=== PATIENT | male | born 1995 | race Caucasian/White ===

== ENCOUNTER 2016-12-15 09:24 | Emergency (ER) | payer OTHER ==
--- NOTE | 2016-12-15 13:01 | ED ORDER SUMMARY ---
..... Patient: BANADR SALAZAR OrderSheet [facility] VisitID: [id number] [place] [address] 21y, M Registration Date/Time: 12/15/2016 ORDER SHEET Weight: 74.8 kg (stated) Allergies: No Known Drug Allergy GENERAL ORDERS: Lumbar Spine 2 or 3V Urgent (11:12/15/2016 Sanam LEPE) (Ack 11:31 Rhiannon) (13:31 Kiarra R.N.) MEDICATION ORDERS: Toradol IM 60 mg (NOW) (11:12/15/2016 Sanam LEPE) (Ack 11:31 Kiarra R.N.) (11:43 Kiarra R.N.) Dilaudid IM 1 mg (HIGH ALERT MEDICATION, NOW) (11:12/15/2016 Sanam LEPE) (Ack 11:31 Kiarra R.N.) (11:43 Kiarra R.N.) IV FLUIDS: ORDER SHEET NOTES: [Electronically signed by Josee Robert R.N. (13:32 12/15/2016)] [Electronically signed by Laurel Whitney MD (06:34 12/19/2016)] [Electronically locked/signed by Josee Robert R.N. (13:32 12/15/2016)]
--- NOTE | 2016-12-15 13:01 | ED CLINICAL REPORT ---
Clinical Report - Physicians/Mid Levels [facility] [address] [place] [address] 12/15/2016 9:26 Patient: BANDAR SALAZAR Time Seen: 10:10. Arrived- By private vehicle. Historian- patient. HISTORY OF PRESENT ILLNESS Chief Complaint: BACK PAIN and CHRONIC BACK PAIN L arm numb. Onset- several days ago and it is still present. It is described as being moderate in degree and in the area of the lower lumbar spine. The quality is noted to be "pain". No radiation. No bladder dysfunction, bowel dysfunction or motor loss. Mild sensory loss (Pt reports numbness in L arm.). Patient denies an injury. No other injury. Similar symptoms previously: Many times. ( Pt has a long-standing h/o chronic back pain. He is supposed to be referred to a new pain clinic.). Recent medical care: Not recently seen/assessed. REVIEW OF SYSTEMS No fever, chills, eye discomfort, headache or sore throat. No cough, difficulty breathing, chest pain, skin rash or abdominal pain. No nausea, vomiting, diarrhea, difficulty with urination or urinary frequency. All systems otherwise negative, except as recorded above. PAST HISTORY Problems: Tendonitis. Thrombocytopenia. Lumbar Radiculopathy. Tetanus Status. Dental Caries. Immunizations. Additional Surgeries: Tonsillectomy. Medications: Flexeril 10 mg BID. Allergies: No Known Drug Allergy. SOCIAL HISTORY Smoker- current status unknown. History of drug use: marijuana. No alcohol use. ADDITIONAL NOTES The nursing notes have been reviewed. PHYSICAL EXAM Vital Signs: 12/15/2016 09:36 BP: 125/91. HR: 126. RR: 20. O2 saturation: 100%. Temp: 98.3 F. Pain level now: 8/10. Have been reviewed. Appearance: Alert. No acute distress. (Pt appears moderately uncomfortable.). HEENT: Normal external inspection. Neck: Normal inspection. Neck nontender. Painless ROM. CVS: Normal heart rate and rhythm. Heart sounds normal. Pulses normal. Respiratory: No respiratory distress. Breath sounds normal. Abdomen: Normal inspection. Soft and nontender. Back: Soft tissue tenderness in the right lower and left lower lumbar area. Limited ROM in the back. No vertebral point tenderness. Skin: Skin warm and dry. Normal skin color. No rash. Normal skin turgor. Extremities: Extremities exhibit normal ROM. Extremities nontender. Neuro: Oriented X 3. Mood/affect normal. No motor deficit. No sensory deficit. LABS, X-RAYS, AND EKG LS-Spine X-rays: No fracture or subluxation. No bony lesion. Views: AP, lateral and obliques. Technique: good. The X-rays were independently viewed by me, interpreted by the radiologist and contemporaneously by me and discussed with the radiologist. Prior films were not available for comparison. Pulse Oximetry: 12/15/2016 09:36 O2 saturation: 100%. (FIO2 - room air). Interpretation: normal. PROGRESS AND PROCEDURES Course of Care: PT was given IM Toradol and Dilaudid. His spine x-ray series was unremarkable. I have d/w him that the best diagnostic test is MRI, and that he should call his doctor to discuss having another one done. Patient counseled in person regarding the patient's stable condition, diagnosis and need for follow-up. Concerns were addressed. Old medical records reviewed. Disposition: Discharged. Condition: stable and improved. CLINICAL IMPRESSION Paresthesia Chronic nontraumatic lumbar back pain. Sciatica present on the right. No radiculopathy or neurological deficit. INSTRUCTIONS Apply ice for 20 minutes three times a day as needed and until better. Don't apply ice directly to skin and don't use while asleep. (Your x-rays look good.). Warnings: SEDATIVE MEDICATION: You were given sedative medication during your visit. Do not drive or operate dangerous machinery for 6 hours. GENERAL WARNINGS: Return or contact your physician immediately if your condition worsens or changes unexpectedly, if not improving as expected, or if other problems arise. Your Current Medications: CONTINUE TAKING THE FOLLOWING MEDICATIONS: Flexeril 10 mg BID*. Prescription Medications: Hydrocodone/APAP 5mg / 325mg: take 1-2 orally every 6 hours as needed for pain. Dispense ten (10). No refill. Follow-up: Follow up with your doctor. Call for the next available appointment. Understanding of the discharge instructions verbalized by patient. (Electronically signed by Laurel Whitney MD 12/19/2016 6:34) Addenda for BANDAR SALAZAR Selene VisitID: [id number] Date: 12/15/2016 12/15/2016 14:38 ERMD was aware of the pt's pulse rate on discharge (Electronically signed by Josee Robert R.N. - 12/15/2016 14:38)
--- NOTE | 2016-12-15 13:01 | ED CLINICAL REPORT ---
Clinical Report - Physicians/Mid Levels [facility] [address] [place] [address] 12/15/2016 9:26 Patient: BANDAR SALAZAR Time Seen: 10:10. Arrived- By private vehicle. Historian- patient. HISTORY OF PRESENT ILLNESS Chief Complaint: BACK PAIN and CHRONIC BACK PAIN L arm numb. Onset- several days ago and it is still present. It is described as being moderate in degree and in the area of the lower lumbar spine. The quality is noted to be "pain". No radiation. No bladder dysfunction, bowel dysfunction or motor loss. Mild sensory loss (Pt reports numbness in L arm.). Patient denies an injury. No other injury. Similar symptoms previously: Many times. ( Pt has a long-standing h/o chronic back pain. He is supposed to be referred to a new pain clinic.). Recent medical care: Not recently seen/assessed. REVIEW OF SYSTEMS No fever, chills, eye discomfort, headache or sore throat. No cough, difficulty breathing, chest pain, skin rash or abdominal pain. No nausea, vomiting, diarrhea, difficulty with urination or urinary frequency. All systems otherwise negative, except as recorded above. PAST HISTORY Problems: Tendonitis. Thrombocytopenia. Lumbar Radiculopathy. Tetanus Status. Dental Caries. Immunizations. Additional Surgeries: Tonsillectomy. Medications: Flexeril 10 mg BID. Allergies: No Known Drug Allergy. SOCIAL HISTORY Smoker- current status unknown. History of drug use: marijuana. No alcohol use. ADDITIONAL NOTES The nursing notes have been reviewed. PHYSICAL EXAM Vital Signs: 12/15/2016 09:36 BP: 125/91. HR: 126. RR: 20. O2 saturation: 100%. Temp: 98.3 F. Pain level now: 8/10. Have been reviewed. Appearance: Alert. No acute distress. (Pt appears moderately uncomfortable.). HEENT: Normal external inspection. Neck: Normal inspection. Neck nontender. Painless ROM. CVS: Normal heart rate and rhythm. Heart sounds normal. Pulses normal. Respiratory: No respiratory distress. Breath sounds normal. Abdomen: Normal inspection. Soft and nontender. Back: Soft tissue tenderness in the right lower and left lower lumbar area. Limited ROM in the back. No vertebral point tenderness. Skin: Skin warm and dry. Normal skin color. No rash. Normal skin turgor. Extremities: Extremities exhibit normal ROM. Extremities nontender. Neuro: Oriented X 3. Mood/affect normal. No motor deficit. No sensory deficit. LABS, X-RAYS, AND EKG LS-Spine X-rays: No fracture or subluxation. No bony lesion. Views: AP, lateral and obliques. Technique: good. The X-rays were independently viewed by me, interpreted by the radiologist and contemporaneously by me and discussed with the radiologist. Prior films were not available for comparison. Pulse Oximetry: 12/15/2016 09:36 O2 saturation: 100%. (FIO2 - room air). Interpretation: normal. PROGRESS AND PROCEDURES Course of Care: PT was given IM Toradol and Dilaudid. His spine x-ray series was unremarkable. I have d/w him that the best diagnostic test is MRI, and that he should call his doctor to discuss having another one done. Patient counseled in person regarding the patient's stable condition, diagnosis and need for follow-up. Concerns were addressed. Old medical records reviewed. Disposition: Discharged. Condition: stable and improved. CLINICAL IMPRESSION Paresthesia Chronic nontraumatic lumbar back pain. Sciatica present on the right. No radiculopathy or neurological deficit. INSTRUCTIONS Apply ice for 20 minutes three times a day as needed and until better. Don't apply ice directly to skin and don't use while asleep. (Your x-rays look good.). Warnings: SEDATIVE MEDICATION: You were given sedative medication during your visit. Do not drive or operate dangerous machinery for 6 hours. GENERAL WARNINGS: Return or contact your physician immediately if your condition worsens or changes unexpectedly, if not improving as expected, or if other problems arise. Your Current Medications: CONTINUE TAKING THE FOLLOWING MEDICATIONS: Flexeril 10 mg BID*. Prescription Medications: Hydrocodone/APAP 5mg / 325mg: take 1-2 orally every 6 hours as needed for pain. Dispense ten (10). No refill. Follow-up: Follow up with your doctor. Call for the next available appointment. Understanding of the discharge instructions verbalized by patient. (Electronically signed by Laurel Whitney MD 12/19/2016 6:34) Addenda for BANDAR SALAZAR Selene VisitID: [id number] Date: 12/15/2016 12/15/2016 14:38 ERMD was aware of the pt's pulse rate on discharge (Electronically signed by Josee Robert R.N. - 12/15/2016 14:38)
--- NOTE | 2016-12-15 13:01 | ED NURSING NOTES ---
Clinical Report - Nurses [facility] [address] [place] [address] 12/15/2016 9:26 Patient: BANDAR SALAZAR TRIAGE Triage time 09:37. Acuity: LEVEL 4. Chief Complaint: BACK PAIN and NUMBNESS (left arm). --09:42 Shawna Galo R.N. 09:36 12/15/16. BP: 125/91. HR: 126. RR: 20. O2 saturation: 100%. Temp: 98.3 F. Pain level now: 05/25. --09:42 Shawna Galo R.N. Weight: 74.8 kg stated. Height/Length: 77 inches Per Patient. BMI: 19.6. --09:36 Shawna Galo R.N. Medications Flexeril 10 mg BID. --09:38 Shawna Galo R.N. Allergies No Known Drug Allergy. --09:38 Shawna Galo R.N. History Arrived by private vehicle. Historian: patient. Primary physician (Jesus Fournier). This started today. ( Pt with history of back pain with herniated discs, followed by Dr. Fleming pain management. Out of pain meds for a month.). He has had numbness. SOCIAL HX: Light tobacco smoker (cigarette)- less than 1/2 a pack per day. Patient refuses to answer tobacco use questions. History of occasional drug use: marijuana. No alcohol use. No infectious disease exposure. --09:42 Shawna Galo R.N. Interventions ID band on patient. --09:42 Shawna Galo R.N. PHYSICAL ASSESSMENT Ambulatory to room. GENERAL / NEURO / PSYCH: Oriented X 4. Appears in no acute distress. Appears in pain. RESPIRATORY: Respirations not labored. Breath sounds within normal limits. GI / : Abdomen soft and nontender. EXTREMITIES: ROM of extremities within normal limits. 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 Normal inspection of the neck and back. --09:42 Shawna Galo R.N. NURSING PROGRESS NOTES Call light placed in reach. Bed placed in lowest position. Patient waiting for evaluation. --09:43 Shawna Galo R.N. 11:43 12/15/2016 Toradol (Ketorolac Tromethamine) IM 60 mg given. Given in the right ventral gluteus. Allergies verified and confirmed 5 rights. --11:43 Josee Robert R.N. 11:43 12/15/2016 Dilaudid (HYDROmorphone HCl PF) IM 1 mg given. Given in the left ventral gluteus. Allergies verified, confirmed 5 rights and sedative warning given to the patient. --11:43 Josee Robert R.N. 11:44 12/15/16. The patient is calm. Overall patient status is the same- he states feels the same. GENERAL / NEURO / PSYCH: Alert. Oriented X 4. RESPIRATORY: No respiratory distress. SKIN: Skin is warm and dry. --11:44 Josee Robert R.N. 12:32 12/15/16. Reassessment after medication administered. He is calm. Overall patient status is the same- he states feels the same (states the med only "made me drowsy"). GENERAL / NEURO / PSYCH: Alert. Oriented X 4. RESPIRATORY: No respiratory distress. SKIN: Skin is warm and dry. --12:32 Josee Robert R.N. 12:31 12/15/16. BP: 113/79. HR: 129. RR: 18. O2 saturation: 100% on room air. Pain level now: 8. --12:32 Josee Robert R.N. 13:25. The patient is calm. Overall patient status is the same- he states feels the same. GENERAL / NEURO / PSYCH: Alert. Oriented X 4. RESPIRATORY: No respiratory distress. SKIN: Skin is warm and dry. --13:31 Josee Robert R.N. DISPOSITION / DISCHARGE Departure time: 1325. Condition at departure: stable. No learning barriers present. Discharge instructions provided and reviewed with the patient. Reviewed medication(s). Prescription(s) given to the patient. Patient verbalized understanding. Written instructions provided in Luxembourgish. The patient was discharged home and unaccompanied at time of discharge. He left the Emergency Department ambulatory and via private vehicle. FALL RISK ASSESSMENT: Fall risk assessment completed. No fall risk identified. --13:28 Josee Robert R.N. 13:17 12/15/16. BP: 118/82. HR: 126. RR: 18. O2 saturation: 96%. Pain level now: 05/25. --13:28 Josee Robert R.N. Locked/Released at 12/15/2016 13:32 by Josee Robert R.N.
--- NOTE | 2016-12-15 13:01 | ED ORDER SUMMARY ---
..... Patient: BANDAR SALAZAR OrderSheet [facility] VisitID: [id number] [place] [address] 21y, M Registration Date/Time: 12/15/2016 ORDER SHEET Weight: 74.8 kg (stated) Allergies: No Known Drug Allergy GENERAL ORDERS: Lumbar Spine 2 or 3V Urgent (11:12/15/2016 Sanam LEPE) (Ack 11:31 Rhiannon) (13:31 Kiarra R.N.) MEDICATION ORDERS: Toradol IM 60 mg (NOW) (11:12/15/2016 Sanam LEPE) (Ack 11:31 Kiarra R.N.) (11:43 Kiarra R.N.) Dilaudid IM 1 mg (HIGH ALERT MEDICATION, NOW) (11:12/15/2016 Sanam LEPE) (Ack 11:31 Kiarra R.N.) (11:43 Kiarra R.N.) IV FLUIDS: ORDER SHEET NOTES: [Electronically signed by Josee Robert R.N. (13:32 12/15/2016)] [Electronically signed by Laurel Whitney MD (06:34 12/19/2016)] [Electronically locked/signed by Josee Robert R.N. (13:32 12/15/2016)]
--- NOTE | 2016-12-15 13:15 | DIAGNOSTIC IMAGING REPORT ---
PROCEDURE: XR LUMBAR SPINE 2 OR 3 VIEWS INDICATION: LOWER BACK PAIN TECHNIQUE: Three views. COMPARISON: Lumbar spine x-ray 12/13/2015. FINDINGS: Normal alignment with stable chronic mild L2 compression fracture. Loss of lordosis. Endplate irregularity suggestive of Scheurmann's disease. Mild degenerative changes and mild L4-5 disc space narrowing. Soft tissues are unremarkable. No significant interval change. IMPRESSION: 1. No significant interval change 2. Loss of lordosis suggestive of muscular spasm 3. Mild degenerative changes and L4-5 disc space narrowing 4. Stable mild L2 wedge compression fracture.
--- NOTE | 2016-12-19 06:34 | ED MAR SUMMARY ---
..... Medication Administration Record [facility] [address] [place] [address] Patient: BANDAR SALAZAR Visit ID: [id number] 21y, M Weight: 74.8 kg Height/Length: 77 in BMI: 19.6 ALLERGIES: No Known Drug Allergy Given 12/15/2016 Josee Robert RReilly Medication Administered: TORADOL [IM] (KETOROLAC TROMETHAMINE), Dose: 60 mg IM. Medication Ordered: Toradol IM 60 mg (NOW). Given :12/15/2016 Josee Robert, RRomarioN. Medication Administered: DILAUDID [IM] (HYDROMORPHONE HCL PF), Dose: 1 mg IM. Medication Ordered: Dilaudid IM 1 mg (HIGH ALERT MEDICATION, NOW).
--- NOTE | 2016-12-19 06:34 | ED MAR SUMMARY ---
..... Medication Administration Record [facility] [address] [place] [address] Patient: BANDAR SALAZAR Visit ID: [id number] 21y, M Weight: 74.8 kg Height/Length: 77 in BMI: 19.6 ALLERGIES: No Known Drug Allergy Given 12/15/2016 Josee Robert RReilly Medication Administered: TORADOL [IM] (KETOROLAC TROMETHAMINE), Dose: 60 mg IM. Medication Ordered: Toradol IM 60 mg (NOW). Given :12/15/2016 Josee Robert, RRomarioN. Medication Administered: DILAUDID [IM] (HYDROMORPHONE HCL PF), Dose: 1 mg IM. Medication Ordered: Dilaudid IM 1 mg (HIGH ALERT MEDICATION, NOW).
--- NOTE | 2016-12-19 06:34 | ED DISCHARGE INSTRUCTIONS ---
Patient: BANDAR SALAZAR General Instructions [facility] VisitID: [id number] [place] [address] 21y, M Registration Date/Time: 12/15/2016 Paresthesia Chronic nontraumatic lumbar back pain. Sciatica present on the right. No radiculopathy or neurological deficit. INSTRUCTIONS Apply ice for 20 minutes three times a day as needed and until better. Don't apply ice directly to skin and don't use while asleep. (Your x-rays look good.). Warnings: SEDATIVE MEDICATION: You were given sedative medication during your visit. Do not drive or operate dangerous machinery for 6 hours. GENERAL WARNINGS: Return or contact your physician immediately if your condition worsens or changes unexpectedly, if not improving as expected, or if other problems arise. Your Current Medications: CONTINUE TAKING THE FOLLOWING MEDICATIONS: Flexeril 10 mg BID*. Prescription Medications: Hydrocodone/APAP 5mg / 325mg: take 1-2 orally every 6 hours as needed for pain. Dispense ten (10). No refill. Follow-up: Follow up with your doctor. Call for the next available appointment. Understanding of the discharge instructions verbalized by patient. ADDITIONAL INFORMATION Sciatica Sciatica ("Lumbar Radiculopathy") causes a pain that spreads from the lower back down into the buttock, hip and leg. Sometimes leg pain can occur without any back pain. Sciatica is due to irritation or pressure on a spinal nerve as it comes out of the spinal canal. This is most often due to a bulge or rupture of a nearby spinal disk (the cartilage cushion between each spinal bone), which presses on a nearby nerve. Other causes include spinal stenosis (narrowing of the spinal canal) and spasm of the pyriform muscle (a muscle in the buttocks that the sciatic nerve passes through). Sciatica may begin after a sudden twisting/bending force (such as in a car accident), or sometimes after a simple awkward movement. In either case, muscle spasm is commonly present and contributes to the pain. The diagnosis of sciatica is made from the symptoms and physical exam. Unless you had a physical injury (such as a car accident or fall), X-rays are usually not ordered for the initial evaluation of sciatica because the nerves and disks cannot be seen on an x-ray. If signs of a compressed nerve are present (for example, loss of tendon reflex or strength in the leg), an MRI (magnetic resonance imaging) scan will need to be scheduled as an outpatient. Most sciatica (80-90%) gets better with medicine, exercise, physical therapy. If symptoms continue after at least three months of medical treatment, surgery may be considered. Home Care: You may need to stay in bed the first few days. But, as soon as possible, begin sitting or walking to avoid problems with prolonged bed rest. When in bed, try to find a position of comfort. A firm mattress is best. Try lying flat on your back with pillows under your knees. You can also try lying on your side with your knees bent up towards your chest and a pillow between your knees. Avoid prolonged sitting. This puts more stress on the lower back than standing or walking. Some persons find relief with heat (hot shower, hot bath or heating pad) and massage, while others prefer cold packs (crushed or cubed ice in a plastic bag, wrapped in a towel). Try both and use the method that feels best for 20 minutes several times a day. You may use acetaminophen (Tylenol) or ibuprofen (Motrin, Advil) to control pain, unless another pain medicine was prescribed. [ NOTE: If you have chronic liver or kidney disease or ever had a stomach ulcer or GI bleeding, talk with your doctor before using these medicines.] Be aware of safe lifting methods and do not lift anything over 15 pounds until all the pain is gone. Follow Up with your doctor or this facility if your symptoms do not start to improve after one week. Physical therapy or further testing may be needed. [NOTE: If X-rays were taken, they will be reviewed by a radiologist. You will be notified of any new findings that may affect your care.] Get Prompt Medical Attention if any of the following occur: Pain becomes worse, not controlled by the prescribed medicine Weakness or numbness in one or both legs Numbness in the groin, genital area Loss of bowel or bladder control Paraesthesias Paraesthesia refers to a burning or prickling sensation that is sometimes felt in the hands, arms, legs or feet. It can also occur in other parts of the body. It can also feel like tingling or numbness, skin crawling or itching.The sensation is usually painless. Most people have experienced pins and needles. This feeling happens when legs have been crossed for too long and pressure is placed on a nerve. This is a temporary paraesthesia. It quickly goes away once the pressure is relieved. There are many possible causes for chronic paraesthesias. These include such disorders as stroke, herniated disk (pressing on a nerve), trapped nerve in the shoulder, elbow or wrist (such as carpal tunnel syndrome), vitamin deficiencies or even certain medicines. Laboratory tests are needed to make an accurate diagnosis. These tests may include blood tests, X-ray, CT (computerized tomography) scan or a muscle test (electromyography).Depending on the cause, treatment may include physical therapy. Home Care: Do not make any changes to your medicines without advice from your doctor. If vitamins have been prescribed, remember to take them daily at the recommended dose. Because of a decrease in feeling, a numb hand or foot may be more prone to injury. Take care to protect these areas from cuts, bumps, bruises, chirinos or other injury. Keep your nails trimmed and wash your hands and feet often. Wear shoes that fit well to avoid pressure points, blisters and ulcers. Look at your hands and feet carefully (including the soles of your feet and between your toes) at least once a week and notify your doctor of any open wounds or signs of infection. Follow Up with your doctor or as advised by our staff. You may need further testing to determine the exact cause of your paraesthesia. [NOTE: If blood tests, X-ray, CT scan or electromyography were done, specialists will review them. You will be notified of any new findings that may affect your care.] Get Prompt Medical Attention if any of the following occur: Numbness or weakness of the face, one arm or one leg Slurred speech, confusion, trouble speaking, walking or seeing Severe headache, fainting spell, dizziness or seizure Chest, arm, neck or upper back pain Loss of bladder or bowel control Open wound with redness, swelling or pus You have been given the following additional information: Back Pain W/ Sciatica Paraesthesias (Electronically signed by Laurel Whitney MD 12/19/2016 6:34)
--- NOTE | 2016-12-19 06:34 | ED MED RECONCILIATION SUMMARY ---
Patient: BANDAR SALAZAR Medication Reconciliation Report [facility] VisitID: [id number] [address] [place] [address] 21y, M Registration Date/Time: 12/15/2016 Weight: 74.8 kg Height/Length: 77 in. BMI: 19.6 ALLERGIES: No Known Drug Allergy The patient's Home Medications are listed below: CONTINUE TAKING THE FOLLOWING MEDICATIONS: Flexeril 10 mg BID The source(s) of the original Home Medication information: Not obtained. The following Medications were given to the patient in the Emergency Department: Toradol [IM] IM 60 mg, administered: 12/15/2016 11:43:00 AM Dilaudid [IM] IM 1 mg, administered: 12/15/2016 11:43:00 AM The following Medications were prescribed to the patient: Hydrocodone/APAP 5mg / 325mg: take 1-2 orally every 6 hours as needed for pain. Dispense ten (10). No refill. -- Laurel Whitney MD
--- NOTE | 2016-12-19 06:34 | ED MED RECONCILIATION SUMMARY ---
Patient: BANDAR SALAZAR Medication Reconciliation Report [facility] VisitID: [id number] [address] [place] [address] 21y, M Registration Date/Time: 12/15/2016 Weight: 74.8 kg Height/Length: 77 in. BMI: 19.6 ALLERGIES: No Known Drug Allergy The patient's Home Medications are listed below: CONTINUE TAKING THE FOLLOWING MEDICATIONS: Flexeril 10 mg BID The source(s) of the original Home Medication information: Not obtained. The following Medications were given to the patient in the Emergency Department: Toradol [IM] IM 60 mg, administered: 12/15/2016 11:43:00 AM Dilaudid [IM] IM 1 mg, administered: 12/15/2016 11:43:00 AM The following Medications were prescribed to the patient: Hydrocodone/APAP 5mg / 325mg: take 1-2 orally every 6 hours as needed for pain. Dispense ten (10). No refill. -- Laurel Whitney MD
== END 2016-12-15 13:25 | disposition home or self-care (01) ==
LOC: ED SRH 09:24
DX: G89.29 Other chronic pain (principal); M54.41 Lumbago with sciatica, right side; R20.9 Unspecified disturbances of skin sensation; F17.210 Nicotine dependence, cigarettes, uncomplicated; Z79.899 Other long term (current) drug therapy

== ENCOUNTER 2017-01-03 13:59 | Emergency (ER) | payer OTHER ==
--- NOTE | 2017-01-03 14:20 | ED CLINICAL REPORT ---
Clinical Report - Physicians/Mid Levels [facility] [address] [place] [address] 01/03/2017 14:01 Patient: BANDAR SALAZAR Time Seen: 14:13 Jan 03 2017. Arrived- By private vehicle. HISTORY OF PRESENT ILLNESS Chief Complaint: SKIN RASH. This started 5 days and is still present. It is described as itchy and painful. It has been located on the right back. No recent medication or insect bite. (patient reports rash to his lower back over the last 5 days. Reports some pain, occasional paresthesias to the area. No history of recent rash similar to such. He denies any recent exposures. Denies any detergent or soap.). REVIEW OF SYSTEMS No fever or difficulty breathing. All systems otherwise negative, except as recorded above. PAST HISTORY Problems: Paresthesia. Pleurisy. Lumbar Strain. Back Injury. Muscle Tear. Tendonitis. Thrombocytopenia. Back Pain. Lumbar Radiculopathy. Tetanus Status. Dental Pain. Strep Throat. Dental Caries. Immunizations. Additional Surgeries: Tonsillectomy. Medications: Flexeril 10 mg BID. Allergies: Haldol. SOCIAL HISTORY Smoker- current status unknown. ADDITIONAL NOTES The nursing notes have been reviewed. PHYSICAL EXAM Vital Signs: 01/03/2017 14:05 BP: 144/86. HR: 120. RR: 14. O2 saturation: 96%. Temp: 98.2 F. Pain level now: 5/10. Appearance: Alert. No acute distress. ENT: Ears not normal. Nose abnormal. CVS: Normal heart rate and rhythm. Heart sounds normal. Respiratory: No respiratory distress. Breath sounds normal. Skin: Rash present on the trunk (right lumbar region). The rash is vesicular and maculopapular. No warmth or tenderness. PROGRESS AND PROCEDURES Course of Care: Patient here in the ER with a rash on the posterior aspect representing a dermatome, likely zoster. No other systemic symptoms. Patient smoked prior to arrival. Otherwise he had a recent cold, however no cough no fevers. No sick contacts. No foreign travel. This is not appears infectious cellulitis. No recent new medications. 01/03/2017 14:26 HR: 92. 01/03/2017 14:05 BP: 144/86. HR: 120. RR: 14. O2 saturation: 96%. Temp: 98.2 F. Pain level now: 5/10. Patient is stable. Patient/family counseled. Disposition: Discharged. CLINICAL IMPRESSION Herpes zoster. INSTRUCTIONS Prescription Medications: Acyclovir 800 mg: Take 1 orally every 4 hours (five times daily) for 10 days. No refill. OTC Medications: Tylenol ER 650 mg (available over the counter): take 1 orally every 6 hours for 3 days, as needed for pain. Dispense ten (10). No refill. Substitution is permissible. Follow-up: Follow up with your doctor as needed. Follow-up with: Diallo Layne MD, [facility], , [facility], [address] [place] [address] Follow up. Call for the next available appointment. (Electronically signed by Lakshmi Bonilla P.A.-C 01/03/2017 14:40)
--- NOTE | 2017-01-03 14:20 | ED CLINICAL REPORT ---
Clinical Report - Physicians/Mid Levels [facility] [address] [place] [address] 01/03/2017 14:01 Patient: BANDAR SALAZAR Time Seen: 14:13 Jan 03 2017. Arrived- By private vehicle. HISTORY OF PRESENT ILLNESS Chief Complaint: SKIN RASH. This started 5 days and is still present. It is described as itchy and painful. It has been located on the right back. No recent medication or insect bite. (patient reports rash to his lower back over the last 5 days. Reports some pain, occasional paresthesias to the area. No history of recent rash similar to such. He denies any recent exposures. Denies any detergent or soap.). REVIEW OF SYSTEMS No fever or difficulty breathing. All systems otherwise negative, except as recorded above. PAST HISTORY Problems: Paresthesia. Pleurisy. Lumbar Strain. Back Injury. Muscle Tear. Tendonitis. Thrombocytopenia. Back Pain. Lumbar Radiculopathy. Tetanus Status. Dental Pain. Strep Throat. Dental Caries. Immunizations. Additional Surgeries: Tonsillectomy. Medications: Flexeril 10 mg BID. Allergies: Haldol. SOCIAL HISTORY Smoker- current status unknown. ADDITIONAL NOTES The nursing notes have been reviewed. PHYSICAL EXAM Vital Signs: 01/03/2017 14:05 BP: 144/86. HR: 120. RR: 14. O2 saturation: 96%. Temp: 98.2 F. Pain level now: 5/10. Appearance: Alert. No acute distress. ENT: Ears not normal. Nose abnormal. CVS: Normal heart rate and rhythm. Heart sounds normal. Respiratory: No respiratory distress. Breath sounds normal. Skin: Rash present on the trunk (right lumbar region). The rash is vesicular and maculopapular. No warmth or tenderness. PROGRESS AND PROCEDURES Course of Care: Patient here in the ER with a rash on the posterior aspect representing a dermatome, likely zoster. No other systemic symptoms. Patient smoked prior to arrival. Otherwise he had a recent cold, however no cough no fevers. No sick contacts. No foreign travel. This is not appears infectious cellulitis. No recent new medications. 01/03/2017 14:26 HR: 92. 01/03/2017 14:05 BP: 144/86. HR: 120. RR: 14. O2 saturation: 96%. Temp: 98.2 F. Pain level now: 5/10. Patient is stable. Patient/family counseled. Disposition: Discharged. CLINICAL IMPRESSION Herpes zoster. INSTRUCTIONS Prescription Medications: Acyclovir 800 mg: Take 1 orally every 4 hours (five times daily) for 10 days. No refill. OTC Medications: Tylenol ER 650 mg (available over the counter): take 1 orally every 6 hours for 3 days, as needed for pain. Dispense ten (10). No refill. Substitution is permissible. Follow-up: Follow up with your doctor as needed. Follow-up with: Diallo Layne MD, [facility], , [facility], [address] [place] [address] Follow up. Call for the next available appointment. (Electronically signed by Lakshmi Bonilla P.A.-C 01/03/2017 14:40)
--- NOTE | 2017-01-03 14:20 | ED NURSING NOTES ---
Clinical Report - Nurses [facility] [address] [place] [address] 01/03/2017 14:01 Patient: BANDAR SALAZAR TRIAGE Triage time 14:05. Acuity: LEVEL 4. Chief Complaint: SKIN RASH. Alert. No acute distress. SEPSIS SCREEN: Sepsis Screen. Negative (no infection suspected/documented). IZZY COMA SCORE: Izzy Coma Scale: 15- eyes open spontaneously (4); best verbal response- oriented x 4 (5); best motor response- obeys commands (6). --14:11 Sandy Cortez R.N. 14:05 01/03/17. BP: 144/86. HR: 120. RR: 14. O2 saturation: 96%. Temp: 98.2 F. Pain level now: 02/22. --14:11 Sandy Cortez R.N. Weight: 74.8 kg. Height/Length: 77 inches. BMI: 19.6. --14:06 Sandy Cortez R.N. Medications Flexeril 10 mg BID. --14:09 Sadny Cortez R.N. Allergies Haldol. --14:10 Sandy Cortez R.N. History Accompanied by friend. Primary physician (Dr Whiting). Reported as located on the back (right lower back). Onset. (4-5 days ago). It is described as itchy, burning and painful. ( pt states "it feels like the pain is moving into the muscle"). Treatment AUDIO VISUAL SPECIALIST: (neosporin). PAST MEDICAL HX: Immunizations: up-to-date. SOCIAL HX: Heavy tobacco smoker- less than 1 pack per day. History of occasional drug use: marijuana. No alcohol use. FALL RISK ASSESSMENT: Fall risk assessment completed. No fall risk identified. NUTRITIONAL RISK ASSESSMENT: The nutritional risk assessment revealed no deficiencies. FUNCTIONAL ASSESSMENT: Functional assessment: no impairments noted. LEARNING NEEDS ASSESSMENT: The learning needs assessment revealed no barriers. SKIN INTEGRITY ASSESSMENT: Skin integrity risk assessment completed. No skin integrity risk identified. --14:11 Sandy Cortez R.N. PROBLEMS: Paresthesia. Pleurisy. Lumbar Strain. Back Injury. Muscle Tear. Tendonitis. Thrombocytopenia. Back Pain. Lumbar Radiculopathy. Tetanus Status. Dental Pain. Strep Throat. Immunizations. --14:10 Sandy Cortez R.N. ADDITIONAL SURGERIES: Tonsillectomy. --14:10 Sandy Cortez R.N. Interventions ID band on patient. To treatment room. --14:11 Sandy Cortez R.N. PHYSICAL ASSESSMENT 14:14 01/03/17. GENERAL / NEURO / PSYCH: Alert. The patient does not appear to be in acute distress. Oriented X 4. RESPIRATORY: Respirations not labored. CVS: Capillary refill less than 2 seconds. SKIN: Skin is intact, warm and dry. Erythematous, tender, raised skin rash on the back- with scaps from scratching. --14:14 Sandy Cortez R.N. NURSING PROGRESS NOTES 14:15 01/03/17. Two patient identifiers checked. Call light placed in reach. Bed placed in lowest position. Brakes of bed on. Patient ready for evaluation- chart flagged and notification provided. --14:15 Sandy Cortez R.N. DISPOSITION / DISCHARGE 14:28 01/03/17. No learning barriers present. Discharge instructions provided and reviewed with the patient. Reviewed medication(s). Treatments reviewed. Reviewed referrals. Patient and rn telemetry verbalized understanding. Written instructions provided in Algerian. The patient was discharged by the physician urology physician assistant. He was discharged home and accompanied by rn telemetry. He left the Emergency Department ambulatory and via private vehicle. Patient driving. --14:28 Sandy Cortez R.N. 14:26 01/03/17. HR: 92. --14:28 Sandy Cortez R.N. 14:05 01/03/17. BP: 144/86. HR: 120. RR: 14. O2 saturation: 96%. Temp: 98.2 F. Pain level now: 02/22. --14:28 Sandy Cortez R.N. Locked/Released at 01/03/2017 14:32 by Sandy Cortez R.N.
--- NOTE | 2017-01-03 14:20 | ED NURSING NOTES ---
Clinical Report - Nurses Merged With [facility] [address] [place] [address] 01/03/2017 14:01 Patient: BANDAR SALAZAR TRIAGE Triage time 14:05. Acuity: LEVEL 4. Chief Complaint: SKIN RASH. Alert. No acute distress. SEPSIS SCREEN: Sepsis Screen. Negative (no infection suspected/documented). IZZY COMA SCORE: Izzy Coma Scale: 15- eyes open spontaneously (4); best verbal response- oriented x 4 (5); best motor response- obeys commands (6). --14:11 Sandy Cortez R.N. 14:05 01/03/17. BP: 144/86. HR: 120. RR: 14. O2 saturation: 96%. Temp: 98.2 F. Pain level now: 02/22. --14:11 Sandy Cortez R.N. Weight: 74.8 kg. Height/Length: 77 inches. BMI: 19.6. --14:06 Sandy Cortez R.N. Medications Flexeril 10 mg BID. --14:09 Sadny Cortez R.N. Allergies Haldol. --14:10 Sandy Cortez R.N. History Accompanied by friend. Primary physician (Dr Whiting). Reported as located on the back (right lower back). Onset. (4-5 days ago). It is described as itchy, burning and painful. ( pt states "it feels like the pain is moving into the muscle"). Treatment BED SETTER: (neosporin). PAST MEDICAL HX: Immunizations: up-to-date. SOCIAL HX: Heavy tobacco smoker- less than 1 pack per day. History of occasional drug use: marijuana. No alcohol use. FALL RISK ASSESSMENT: Fall risk assessment completed. No fall risk identified. NUTRITIONAL RISK ASSESSMENT: The nutritional risk assessment revealed no deficiencies. FUNCTIONAL ASSESSMENT: Functional assessment: no impairments noted. LEARNING NEEDS ASSESSMENT: The learning needs assessment revealed no barriers. SKIN INTEGRITY ASSESSMENT: Skin integrity risk assessment completed. No skin integrity risk identified. --14:11 Sandy Cortez R.N. PROBLEMS: Paresthesia. Pleurisy. Lumbar Strain. Back Injury. Muscle Tear. Tendonitis. Thrombocytopenia. Back Pain. Lumbar Radiculopathy. Tetanus Status. Dental Pain. Strep Throat. Immunizations. --14:10 Sandy Cortez R.N. ADDITIONAL SURGERIES: Tonsillectomy. --14:10 Sandy Cortez R.N. Interventions ID band on patient. To treatment room. --14:11 Sandy Cortez R.N. PHYSICAL ASSESSMENT 14:14 01/03/17. GENERAL / NEURO / PSYCH: Alert. The patient does not appear to be in acute distress. Oriented X 4. RESPIRATORY: Respirations not labored. CVS: Capillary refill less than 2 seconds. SKIN: Skin is intact, warm and dry. Erythematous, tender, raised skin rash on the back- with scaps from scratching. --14:14 Sandy Cortez R.N. NURSING PROGRESS NOTES 14:15 01/03/17. Two patient identifiers checked. Call light placed in reach. Bed placed in lowest position. Brakes of bed on. Patient ready for evaluation- chart flagged and notification provided. --14:15 Sandy Cortez R.N. DISPOSITION / DISCHARGE 14:28 01/03/17. No learning barriers present. Discharge instructions provided and reviewed with the patient. Reviewed medication(s). Treatments reviewed. Reviewed referrals. Patient and senior sales assistant verbalized understanding. Written instructions provided in Marshallese. The patient was discharged by the physician human resources office assistant. He was discharged home and accompanied by senior sales assistant. He left the Emergency Department ambulatory and via private vehicle. Patient driving. --14:28 Sandy Cortez R.N. 14:26 01/03/17. HR: 92. --14:28 Sandy Cortez R.N. 14:05 01/03/17. BP: 144/86. HR: 120. RR: 14. O2 saturation: 96%. Temp: 98.2 F. Pain level now: 02/22. --14:28 Sandy Cortez R.N. Locked/Released at 01/03/2017 14:32 by Sandy Cortez R.N.
--- NOTE | 2017-01-03 14:40 | ED MED RECONCILIATION SUMMARY ---
Patient: BANDAR SALAZAR Medication Reconciliation Report [facility] VisitID: [id number] [address] [place] [address] 21y, M Registration Date/Time: 01/03/2017 Weight: 74.8 kg Height/Length: 77 in. BMI: 19.6 ALLERGIES: Haldol The patient's Home Medications are listed below: THE FOLLOWING MEDICATIONS NEED TO BE RECONCILED: Flexeril 10 mg BID The source(s) of the original Home Medication information: Not obtained. The following Medications were given to the patient in the Emergency Department: None. The following Medications were prescribed to the patient: Tylenol ER 650 mg (available over the counter): take 1 orally every 6 hours for 3 days, as needed for pain. Dispense ten (10). No refill. Substitution is permissible. -- Lakshmi Bonilla, P.A.-C Acyclovir 800 mg: Take 1 orally every 4 hours (five times daily) for 10 days. No refill. -- Lakshmi Bonilla, P.A.-C
--- NOTE | 2017-01-03 14:40 | ED MED RECONCILIATION SUMMARY ---
Patient: BANDAR SALAZAR Medication Reconciliation Report [facility] VisitID: [id number] [address] [place] [address] 21y, M Registration Date/Time: 01/03/2017 Weight: 74.8 kg Height/Length: 77 in. BMI: 19.6 ALLERGIES: Haldol The patient's Home Medications are listed below: THE FOLLOWING MEDICATIONS NEED TO BE RECONCILED: Flexeril 10 mg BID The source(s) of the original Home Medication information: Not obtained. The following Medications were given to the patient in the Emergency Department: None. The following Medications were prescribed to the patient: Tylenol ER 650 mg (available over the counter): take 1 orally every 6 hours for 3 days, as needed for pain. Dispense ten (10). No refill. Substitution is permissible. -- Lakshmi Bonilla, P.A.-C Acyclovir 800 mg: Take 1 orally every 4 hours (five times daily) for 10 days. No refill. -- Lakshmi Bonilla, P.A.-C
--- NOTE | 2017-01-03 14:40 | ED MAR SUMMARY ---
..... Medication Administration Record [facility] [address] [place] [id number] Patient: BANDAR SALAZAR Selene Visit ID: [id number] 21y, M Weight: 74.8 kg Height/Length: 77 in BMI: 19.6 ALLERGIES: Haldol
--- NOTE | 2017-01-03 14:40 | ED DISCHARGE INSTRUCTIONS ---
Patient: BANDAR SALAZAR General Instructions [facility] VisitID: [id number] [place] [address] 21y, M Registration Date/Time: 01/03/2017 Herpes zoster. INSTRUCTIONS Prescription Medications: Acyclovir 800 mg: Take 1 orally every 4 hours (five times daily) for 10 days. No refill. OTC Medications: Tylenol ER 650 mg (available over the counter): take 1 orally every 6 hours for 3 days, as needed for pain. Dispense ten (10). No refill. Substitution is permissible. Follow-up: Follow up with your doctor as needed. Follow-up with: Diallo Layne MD, [facility], , [facility], [address] [place] [address] Follow up. Call for the next available appointment. ADDITIONAL INFORMATION Shingles Anyone who has had chicken pox may get shingles later in life. It is caused by the same virus that has remained dormant (asleep) in your body. Shingles usually occurs in adults over the age of 50 or those with lowered immunity (cancer treatment, prolonged steroid use, HIV or AIDS). It starts as a tingling patch of skin on one side of the body. During the first several days small painful blisters appear in this area. However, unlike chicken pox the rash does not spread to the rest of the body. The blister fluid contains the virus. Exposure to shingles cannot cause shingles. However, it can cause chicken pox in anyone who has never had chicken pox before. The contagious period ends when all blisters have crusted over (usually about two weeks after the illness begins). Scarring may occur where the blisters appear. Sometimes there is continued sensitivity and pain in the involved patch of skin for months after the infection (neuralgia). Persons older than 50 or those with a weakened immune system may be treated with antiviral medicines to reduce pain, shorten the illness and prevent neuralgia. Zostavax is a vaccine that can help prevent shingles or make it less painful. It is recommended for adults over the age of 60 who have had chicken pox in the past, but not shingles. Adults over 60 who have had neither chicken pox nor shingles can prevent both diseases with a Varicella vaccine. Home Care: You may use acetaminophen (Tylenol) or ibuprofen (Motrin, Advil) to control pain, unless another medicine was prescribed. [NOTE: If you have chronic liver or kidney disease or ever had a stomach ulcer or GI bleeding, talk with your doctor before using these medicines.] (Aspirin should never be used in anyone under 18 years of age who is ill with a fever. It may cause severe liver damage.) To relieve itching and pain, make a solution of cool water mixed with cornstarch, baking soda, Aveeno Oatmeal, or Domeboro powder (available without a prescription). Apply the solution as a compress to the area. This will soothe the skin. Calamine or Caladryl lotion may help. Oral Benadryl (diphenhydramine) is an antihistamine available at drug and grocery stores. Unless a prescription antihistamine was given, Benadryl may be used to reduce itching if large areas of the skin are involved. Use lower doses during the daytime and higher doses at bedtime since the drug may make you sleepy. [NOTE: Do not use Benadryl if you have glaucoma or if you are a man with trouble urinating due to an enlarged prostate.] Claritin (loratidine) is an antihistamine that causes less drowsiness and is a good alternative for daytime use. Wash skin with soap and water to keep rash free of infection. Trim fingernails to prevent scratching. Scratching the sores may leave scars. Stay home from work or school until all blisters have formed a crust and you are no longer contagious. Follow Up with your doctor or as directed by our staff if the above measures do not bring relief. GET PROMPT MEDICAL ATTENTION if any of the following occur: Headache or stiff neck Increasing drowsiness, confusion or bizarre behavior Cough with trouble breathing or fast breathing (over 25 breaths per minute) Pain, redness or swelling of a joint Fever of 100.4F (38C) or higher, or as directed by your healthcare provider Eye pain or changes in vision or sores that appear near the eye Signs of skin infection (yellow or white drainage from the sores, increasing redness or pain) Weakness or numbness of an arm or leg Difficulty speaking, swallowing or walking Seizure You have been given the following additional information: Herpes Zoster (Electronically signed by Lakshmi Bonilla P.A.-C 01/03/2017 14:40)
--- NOTE | 2017-01-03 14:40 | ED MAR SUMMARY ---
..... Medication Administration Record [facility] [address] [place] [id number] Patient: BANDAR SALAZAR Selene Visit ID: [id number] 21y, M Weight: 74.8 kg Height/Length: 77 in BMI: 19.6 ALLERGIES: Haldol
== END 2017-01-03 14:28 | disposition home or self-care (01) ==
LOC: ED SRH 13:59
DX: B02.9 Zoster without complications (principal); Z88.8 Allergy status to other drugs, medicaments and biological substances

== ENCOUNTER 2017-01-04 17:18 | Emergency (ER) | payer OTHER ==
--- NOTE | 2017-01-04 18:19 | ED NURSING NOTES ---
Clinical Report - Nurses [facility] [address] [place] [address] 01/04/2017 17:19 Patient: BANDAR SALAZAR TRIAGE Triage time 17:23 Jan 04 2017. Acuity: LEVEL 4. Chief Complaint: SKIN RASH and SKIN LESION and TENDER AREA and . Patient was in ER yesterday, he went to Urgent care today and they sent him to ER. 17:31 01/04/17. SEPSIS SCREEN: Sepsis Screen. Negative (no infection suspected/documented). ION COMA SCORE: [place] Coma Scale: 15- eyes open spontaneously (4); best verbal response- oriented x 4 (5); best motor response- obeys commands (6). --17:31 Miesha Richardson R.N. 17:22 01/04/17. BP: 138/114 (regular adult cuff) taken on the left arm, while sitting. HR: 97. RR: 18 (regular). O2 saturation: 100% on room air. Temp: 98.3 F (oral). Pain level now: 810. --17:31 Miesha Richardson R.N. Weight: 74.8 kg stated. Height/Length: 77 inches Per Patient. BMI: 19.6. --17:21 Miesha Richardson R.N. Medications Flexeril 10 mg BID. --17:25 Miesha Richardson R.N. Tylenol Oral. --17:25 Miesha Richardson R.N. Acyclovir Oral (Tablet 800 mg) 1 tablet, 5x a day. --17:25 Miesha Richardson R.N. Allergies Haldol. --17:25 Miesha Richardson R.N. History Arrived by private vehicle, and from home. Historian: patient. Accompanied by friend. Reported as (Starts at right lateral back and travels to spine). Onset. (4 days ago). It is described as itchy, burning and painful. He has had itching. Treatment COMMODITIES TRADER: None. PAST MEDICAL HX: Immunizations: up-to-date. SOCIAL HX: Current every day light tobacco smoker (cigarette)- less than 1/2 a pack per day. History of occasional drug use: marijuana. Recently used drugs days ago. No alcohol use. He has not traveled outside the [place] ABUSE ASSESSMENT: No report of abuse. --17:31 Miesha Richardson R.N. PROBLEMS: Herpes Zoster. Paresthesia. Pleurisy. Lumbar Strain. Back Injury. Muscle Tear. Tendonitis. Thrombocytopenia. Back Pain. Lumbar Radiculopathy. Strep Throat. Dental Caries. --17:26 Miesha Richardson R.N. ADDITIONAL SURGERIES: Tonsillectomy. --17:26 Miesha Richardson R.N. Interventions ID band on patient. To treatment room. --17:31 Miesha Richardson R.N. PHYSICAL ASSESSMENT 17:33 01/04/17. Ambulatory to room. GENERAL / NEURO / PSYCH: Appears in pain. Oriented X 4. HEENT: Mucous membranes are pink. RESPIRATORY: Respirations not labored. Breath sounds within normal limits. CVS: Capillary refill less than 2 seconds. GI / : Abdomen nontender. SKIN: Skin is intact and warm. Skin rash present. Multiple small crusted papules with erythema and tenderness- From spine to right lateral back. Blister present. Skin tenderness present. Erythema present. --17:33 Miesha Richardson R.N. NURSING PROGRESS NOTES 17:34 01/04/17. The plan of care for this patient has been created. Patient gowned. Head of bed elevated. Reassurance given. Two patient identifiers checked. Call light placed in reach. Side rails up x 2. Bed placed in lowest position. Brakes of bed on. Patient ready for evaluation- chart flagged and ED physician notified. --17:34 Miesha Richardson R.N. 17:51 01/04/2017 Toradol (Ketorolac Tromethamine) IM 60 mg given. Given in the right ventral gluteus. Allergies verified and confirmed 5 rights. --17:51 Miesha Richardson R.N. DISPOSITION / DISCHARGE 18:29 01/04/2017 Toradol IM Response: no adverse reaction pain is worsening. Symptoms are the same. The patient feels the same. --18:29 Miesha Richardson R.N. 18:29 01/04/17. Departure time: 18:Jan 04 2017. Condition at departure: unchanged. No learning barriers present. Discharge instructions provided and reviewed with the patient. Reviewed medication(s) side effects and precautions information. Prescription(s) given to the patient. Patient verbalized understanding. Written instructions provided in Singaporean. The patient was discharged by the physician. He was discharged home and accompanied by spouse. He left the Emergency Department ambulatory and via private vehicle. Spouse driving. ( Patient requested to leave so he could go home and take care of things himself, he feels as though his pain was not addressed, I explained to him he needed to give the toradol more time for pain relief and to use the lidocaine patches for topical pain relief.). --18:29 Miesha Richardson R.N. 18:26 01/04/17. BP: 132/76 (regular adult cuff) taken on the left arm, while sitting. HR: 90. RR: 18. O2 saturation: 100% on room air. Temp: 98.2 F (oral). Pain level now: 03/25. --18:29 Miesha Richardson R.N. Locked/Released at 01/04/2017 18:30 by Miesha Richardson R.N.
--- NOTE | 2017-01-04 18:19 | ED ORDER SUMMARY ---
..... Patient: BANDAR SALAZAR OrderSheet [facility] VisitID: [id number] [address] [place] [address] 21y, M Registration Date/Time: 01/04/2017 ORDER SHEET Weight: 74.8 kg (stated) Allergies: Haldol GENERAL ORDERS: MEDICATION ORDERS: Toradol IM 60 mg (NOW) (17:46 01/04/2017 Aramis Falk) (17:51 Fermin Morton.NRomario) IV FLUIDS: ORDER SHEET NOTES: [Electronically signed by Miesha Richardson R.N. (18:30 01/04/2017)] [Electronically signed by Elliot Lu Dr. (18:42 01/04/2017)] [Electronically locked/signed by Miesha Richardson R.N. (18:30 01/04/2017)]
--- NOTE | 2017-01-04 18:19 | ED ORDER SUMMARY ---
..... Patient: BANDAR SALAZAR OrderSheet [facility] VisitID: [id number] [address] [place] [address] 21y, M Registration Date/Time: 01/04/2017 ORDER SHEET Weight: 74.8 kg (stated) Allergies: Haldol GENERAL ORDERS: MEDICATION ORDERS: Toradol IM 60 mg (NOW) (17:46 01/04/2017 Aramis Falk) (17:51 Fermin Morton.NRomario) IV FLUIDS: ORDER SHEET NOTES: [Electronically signed by Miesha Richardson R.N. (18:30 01/04/2017)] [Electronically signed by Elliot Lu Dr. (18:42 01/04/2017)] [Electronically locked/signed by Miesha Richardson R.N. (18:30 01/04/2017)]
--- NOTE | 2017-01-04 18:19 | ED CLINICAL REPORT ---
Clinical Report - Physicians/Mid Levels [facility] [address] [place] [address] 01/04/2017 17:19 Patient: BANDAR SALAZAR Time Seen: 17:24; initial patient contact. Arrived- By private vehicle. Historian- patient. HISTORY OF PRESENT ILLNESS Chief Complaint: SKIN RASH. This started about 5 days ago and is still present. It was gradual in onset. It is described as itchy, painful and burning. It has been located on the right back. A cause has been identified (Shingles). Similar symptoms previously: None. Recent medical care: The patient was seen recently at this facility (yesterday). REVIEW OF SYSTEMS No fever or chills. He has had a headache. All systems otherwise negative, except as recorded above. PAST HISTORY Herpes Zoster. Paresthesia. Pleurisy. Lumbar Strain. Back Injury. Muscle Tear. Tendonitis. Thrombocytopenia. Back Pain. Lumbar Radiculopathy. Strep Throat. Dental Caries. ADDITIONAL SURGERIES: Tonsillectomy. SOCIAL HISTORY Current every day smoker. History of drug use: marijuana. ADDITIONAL NOTES The nursing notes have been reviewed with agreement regarding the chief complaint, PMH and patient medications and allergies. PHYSICAL EXAM Appearance: Alert. Oriented X3. No acute distress. CVS: Normal heart rate and rhythm. Heart sounds normal. Respiratory: No respiratory distress. Breath sounds normal. Skin: Rash present on the right abdomen and back (Dermatomal distribution). The rash is vesicular. There is weeping. Neuro: Oriented X 3. PROGRESS AND PROCEDURES Disposition: Discharged home in good and improved condition. Condition: good. CLINICAL IMPRESSION Herpes zoster with postherpetic neuralgia. INSTRUCTIONS Your Current Medications: CONTINUE TAKING THE FOLLOWING MEDICATIONS: Acyclovir Oral : Tablet 800 mg, 1 tablet 5x a day. Flexeril 10 mg BID*. Tylenol Oral. Prescription Medications: Lidocaine 5% patch Apply 1 patch to affected area q 12 hours Disp #30 No refills. Follow-up: Follow up with your doctor tomorrow. Call for an appointment. Screening today revealed the patient's blood pressure to be in the hypertensive range. The patient should follow up with a primary care provider for blood pressure management. (Electronically signed by Elliot Lu Dr. 01/04/2017 18:42)
--- NOTE | 2017-01-04 18:19 | ED CLINICAL REPORT ---
Clinical Report - Physicians/Mid Levels [facility] [address] [place] [address] 01/04/2017 17:19 Patient: BANDAR SALAZAR Time Seen: 17:24; initial patient contact. Arrived- By private vehicle. Historian- patient. HISTORY OF PRESENT ILLNESS Chief Complaint: SKIN RASH. This started about 5 days ago and is still present. It was gradual in onset. It is described as itchy, painful and burning. It has been located on the right back. A cause has been identified (Shingles). Similar symptoms previously: None. Recent medical care: The patient was seen recently at this facility (yesterday). REVIEW OF SYSTEMS No fever or chills. He has had a headache. All systems otherwise negative, except as recorded above. PAST HISTORY Herpes Zoster. Paresthesia. Pleurisy. Lumbar Strain. Back Injury. Muscle Tear. Tendonitis. Thrombocytopenia. Back Pain. Lumbar Radiculopathy. Strep Throat. Dental Caries. ADDITIONAL SURGERIES: Tonsillectomy. SOCIAL HISTORY Current every day smoker. History of drug use: marijuana. ADDITIONAL NOTES The nursing notes have been reviewed with agreement regarding the chief complaint, PMH and patient medications and allergies. PHYSICAL EXAM Appearance: Alert. Oriented X3. No acute distress. CVS: Normal heart rate and rhythm. Heart sounds normal. Respiratory: No respiratory distress. Breath sounds normal. Skin: Rash present on the right abdomen and back (Dermatomal distribution). The rash is vesicular. There is weeping. Neuro: Oriented X 3. PROGRESS AND PROCEDURES Disposition: Discharged home in good and improved condition. Condition: good. CLINICAL IMPRESSION Herpes zoster with postherpetic neuralgia. INSTRUCTIONS Your Current Medications: CONTINUE TAKING THE FOLLOWING MEDICATIONS: Acyclovir Oral : Tablet 800 mg, 1 tablet 5x a day. Flexeril 10 mg BID*. Tylenol Oral. Prescription Medications: Lidocaine 5% patch Apply 1 patch to affected area q 12 hours Disp #30 No refills. Follow-up: Follow up with your doctor tomorrow. Call for an appointment. Screening today revealed the patient's blood pressure to be in the hypertensive range. The patient should follow up with a primary care provider for blood pressure management. (Electronically signed by Elliot Lu Dr. 01/04/2017 18:42)
--- NOTE | 2017-01-04 18:42 | ED DISCHARGE INSTRUCTIONS ---
Patient: BANDAR SALAZAR General Instructions [facility] VisitID: [id number] [place] [address] 21y, M Registration Date/Time: 01/04/2017 Herpes zoster with postherpetic neuralgia. INSTRUCTIONS Your Current Medications: CONTINUE TAKING THE FOLLOWING MEDICATIONS: Acyclovir Oral : Tablet 800 mg, 1 tablet 5x a day. Flexeril 10 mg BID*. Tylenol Oral. Prescription Medications: Lidocaine 5% patch Apply 1 patch to affected area q 12 hours Disp #30 No refills. Follow-up: Follow up with your doctor tomorrow. Call for an appointment. Screening today revealed the patient's blood pressure to be in the hypertensive range. The patient should follow up with a primary care provider for blood pressure management. ADDITIONAL INFORMATION Shingles Anyone who has had chicken pox may get shingles later in life. It is caused by the same virus that has remained dormant (asleep) in your body. Shingles usually occurs in adults over the age of 50 or those with lowered immunity (cancer treatment, prolonged steroid use, HIV or AIDS). It starts as a tingling patch of skin on one side of the body. During the first several days small painful blisters appear in this area. However, unlike chicken pox the rash does not spread to the rest of the body. The blister fluid contains the virus. Exposure to shingles cannot cause shingles. However, it can cause chicken pox in anyone who has never had chicken pox before. The contagious period ends when all blisters have crusted over (usually about two weeks after the illness begins). Scarring may occur where the blisters appear. Sometimes there is continued sensitivity and pain in the involved patch of skin for months after the infection (neuralgia). Persons older than 50 or those with a weakened immune system may be treated with antiviral medicines to reduce pain, shorten the illness and prevent neuralgia. Zostavax is a vaccine that can help prevent shingles or make it less painful. It is recommended for adults over the age of 60 who have had chicken pox in the past, but not shingles. Adults over 60 who have had neither chicken pox nor shingles can prevent both diseases with a Varicella vaccine. Home Care: You may use acetaminophen (Tylenol) or ibuprofen (Motrin, Advil) to control pain, unless another medicine was prescribed. [NOTE: If you have chronic liver or kidney disease or ever had a stomach ulcer or GI bleeding, talk with your doctor before using these medicines.] (Aspirin should never be used in anyone under 18 years of age who is ill with a fever. It may cause severe liver damage.) To relieve itching and pain, make a solution of cool water mixed with cornstarch, baking soda, Aveeno Oatmeal, or Domeboro powder (available without a prescription). Apply the solution as a compress to the area. This will soothe the skin. Calamine or Caladryl lotion may help. Oral Benadryl (diphenhydramine) is an antihistamine available at drug and grocery stores. Unless a prescription antihistamine was given, Benadryl may be used to reduce itching if large areas of the skin are involved. Use lower doses during the daytime and higher doses at bedtime since the drug may make you sleepy. [NOTE: Do not use Benadryl if you have glaucoma or if you are a man with trouble urinating due to an enlarged prostate.] Claritin (loratidine) is an antihistamine that causes less drowsiness and is a good alternative for daytime use. Wash skin with soap and water to keep rash free of infection. Trim fingernails to prevent scratching. Scratching the sores may leave scars. Stay home from work or school until all blisters have formed a crust and you are no longer contagious. Follow Up with your doctor or as directed by our staff if the above measures do not bring relief. GET PROMPT MEDICAL ATTENTION if any of the following occur: Headache or stiff neck Increasing drowsiness, confusion or bizarre behavior Cough with trouble breathing or fast breathing (over 25 breaths per minute) Pain, redness or swelling of a joint Fever of 100.4F (38C) or higher, or as directed by your healthcare provider Eye pain or changes in vision or sores that appear near the eye Signs of skin infection (yellow or white drainage from the sores, increasing redness or pain) Weakness or numbness of an arm or leg Difficulty speaking, swallowing or walking Seizure You have been given the following additional information: Herpes Zoster (Electronically signed by Elliot Lu Dr. 01/04/2017 18:42)
--- NOTE | 2017-01-04 18:42 | ED MAR SUMMARY ---
..... Medication Administration Record [facility] [address] [place] [address] Patient: BANDAR SALAZAR Visit ID: [id number] 21y, M Weight: 74.8 kg Height/Length: 77 in BMI: 19.6 ALLERGIES: Haldol Given 17:51 01/04/2017 Miesha Richardson RReilly Medication Administered: TORADOL [IM] (KETOROLAC TROMETHAMINE), Dose: 60 mg IM. Medication Ordered: Toradol IM 60 mg (NOW).
--- NOTE | 2017-01-04 18:42 | ED MAR SUMMARY ---
..... Medication Administration Record [facility] [address] [place] [address] Patient: BANDAR SALAZAR Visit ID: [id number] 21y, M Weight: 74.8 kg Height/Length: 77 in BMI: 19.6 ALLERGIES: Haldol Given 17:51 01/04/2017 Miesha Richardson RReilly Medication Administered: TORADOL [IM] (KETOROLAC TROMETHAMINE), Dose: 60 mg IM. Medication Ordered: Toradol IM 60 mg (NOW).
--- NOTE | 2017-01-04 18:42 | ED MED RECONCILIATION SUMMARY ---
Patient: BANDAR SALAZAR Medication Reconciliation Report [facility] VisitID: [id number] [address] [place] [address] 21y, M Registration Date/Time: 01/04/2017 Weight: 74.8 kg Height/Length: 77 in. BMI: 19.6 ALLERGIES: Haldol The patient's Home Medications are listed below: CONTINUE TAKING THE FOLLOWING MEDICATIONS: Acyclovir Oral (800 mg) 1 tablet, 5x a day Flexeril 10 mg BID Tylenol Oral The source(s) of the original Home Medication information: Not obtained. The following Medications were given to the patient in the Emergency Department: Toradol [IM] IM 60 mg, administered: 01/04/2017 5:51:00 PM The following Medications were prescribed to the patient: Lidocaine 5% patchApply 1 patch to affected area q 12 hoursDisp #30No refills. -- Elliot Lu Dr.
--- NOTE | 2017-01-04 18:42 | ED MED RECONCILIATION SUMMARY ---
Patient: BANDAR SALAZAR Medication Reconciliation Report [facility] VisitID: [id number] [address] [place] [address] 21y, M Registration Date/Time: 01/04/2017 Weight: 74.8 kg Height/Length: 77 in. BMI: 19.6 ALLERGIES: Haldol The patient's Home Medications are listed below: CONTINUE TAKING THE FOLLOWING MEDICATIONS: Acyclovir Oral (800 mg) 1 tablet, 5x a day Flexeril 10 mg BID Tylenol Oral The source(s) of the original Home Medication information: Not obtained. The following Medications were given to the patient in the Emergency Department: Toradol [IM] IM 60 mg, administered: 01/04/2017 5:51:00 PM The following Medications were prescribed to the patient: Lidocaine 5% patchApply 1 patch to affected area q 12 hoursDisp #30No refills. -- Elliot Lu Dr.
== END 2017-01-04 18:29 | disposition home or self-care (01) ==
LOC: ED SRH 17:18
DX: B02.29 Other postherpetic nervous system involvement (principal); F17.210 Nicotine dependence, cigarettes, uncomplicated; Z79.899 Other long term (current) drug therapy; Z79.1 Long term (current) use of non-steroidal anti-inflammatories (NSAID); Z88.5 Allergy status to narcotic agent